=== PATIENT | female | born 1960 | race Caucasian/White ===

== ENCOUNTER → 2019-02-21 | Outpatient (RCR) | payer BC | LOC: PT 02-12 13:52 | PROVIDERS: ATTEND Specialist | DX: S83.511D Sprain of anterior cruciate ligament of right knee, subsequent encounter (principal); M62.81 Muscle weakness (generalized); R26.9 Unspecified abnormalities of gait and mobility ==

== ENCOUNTER 2019-03-21 17:00 | Outpatient (RCR) | payer BC | END 2019-03-24 | LOC: PT 17:00 | PROVIDERS: ATTEND Specialist | DX: S83.511D Sprain of anterior cruciate ligament of right knee, subsequent encounter (principal); M62.81 Muscle weakness (generalized); R26.9 Unspecified abnormalities of gait and mobility ==

== ENCOUNTER 2019-03-27 16:56 | Outpatient (RCR) | payer BC | END 2019-04-23 | LOC: PT 16:56 | PROVIDERS: ATTEND Specialist | DX: S83.512D Sprain of anterior cruciate ligament of left knee, subsequent encounter (principal); M62.81 Muscle weakness (generalized); R26.9 Unspecified abnormalities of gait and mobility ==